=== PATIENT | male | born 1965 | race Two or more races ===

== ENCOUNTER 2016-08-28 11:17 | Emergency (ER) | payer MEDICAID ==
[~2016-08-28] VITALS: Ht 182.9 cm; Wt 136.1 kg
[2016-08-28] MEDS ORDERED: Ketorolac 30mg Inj IV ONE (12:45)
[2016-08-28 13:16] LABS: BASOPHILS % (AUTO) 2.7 % (0.0-2.0); EOSINOPHILS % (AUTO) 2.6 % (0.0-3.0); LYMPHOCYTES % (AUTO) 21.1 % (20.0-45.0); MEAN CORPUSCULAR HEMOGLOBIN 27.3 PG (27.0-31.0); MEAN CORPUSCULAR HGB CONC 30.3 G/DL (32.0-36.0); MEAN CORPUSCULAR VOLUME 90 FL (80-99); MEAN PLATELET VOLUME 6.3 FL (6.5-10.1); MONOCYTES % (AUTO) 8.6 % (1.0-10.0); NEUTROPHILS % (AUTO) 65.1 % (45.0-75.0); PLATELET COUNT 304 K/UL (150-450); RED BLOOD COUNT 5.22 M/UL (4.70-6.10); RED CELL DISTRIBUTION WIDTH 13.5 % (11.6-14.8); WHITE BLOOD COUNT 7.7 K/UL (4.8-10.8)
[2016-08-28 13:20] LABS: ALANINE AMINOTRANSFERASE 17 U/L (3-41); ALBUMIN/GLOBULIN RATIO 1.3 (1.0-2.7); ANION GAP 13 (5-15); ASPARTATE AMINO TRANSFERASE 17 U/L (5-40); CALCIUM 9.1 mg/dL (8.6-10.2); CARBON DIOXIDE 25 mEQ/L (20-30); CHLORIDE 101 mEQ/L (98-107); CREATININE 0.8 mg/dL (0.7-1.2); GLOMERULAR FILTRATION RATE > 60 mL/min (>60); HEMOLYSIS 1; POTASSIUM 4.5 mEQ/L (3.4-4.9); SODIUM 139 mEQ/L (135-145); TOTAL PROTEIN 6.6 g/dL (6.6-8.7)
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
[2016-08-28] MEDS ORDERED: IBUPROFEN600 MG ORAL (15:07)
[2016-08-28 15:50] VITALS: BP 166/99
--- NOTE | 2016-08-28 16:06 | Diagnostic Imaging Report ---
Indication: PAIN Technique: 2 views of the left hip Comparison: None Findings: Positioning is somewhat suboptimal. No acute fractures. No dislocations. Joint spaces are preserved. Impression: No acute process
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
== END 2016-08-28 15:50 | disposition home or self-care (01) ==
LOC: EDBD 11:17 → EMR 11:40
DX: M25.552 Pain in left hip (principal); R10.9 Unspecified abdominal pain
CPT/HCPCS: 36415; 73502; 74177; 80053; 85025; 96374; 99284; J1885; Q9967